=== PATIENT | female | born 1990 | race Two or more races ===

== ENCOUNTER 2020-04-07 20:53 | Observation (INO) | payer OTHER ==
[~2020-04-07] VITALS: Ht 165.1 cm; Wt 109.3 kg
[2020-04-07] MEDS ORDERED: LACTATED RINGER'S 1,000 ML IV ONE (22:45)
[2020-04-07] MEDS ORDERED: TERBUTALINE SULFATE 1 MG/ML 1ML VIAL SC SCH (22:45)
[2020-04-07] MEDS ORDERED: ACETAMINOPHEN 325 MG TAB PO ONE (22:45)
== END 2020-04-08 00:43 | disposition home or self-care (01) ==
LOC: ER 20:54 → LDRP 21:40
PROVIDERS: ADMIT Obstetrics & Gynecology; ATTEND Obstetrics & Gynecology
DX: O62.9 Abnormality of forces of labor, unspecified (principal); O99.512 Diseases of the respiratory system complicating pregnancy, second trimester; R10.30 Lower abdominal pain, unspecified; M54.9 Dorsalgia, unspecified; J45.909 Unspecified asthma, uncomplicated; Z3A.20 20 weeks gestation of pregnancy
CPT/HCPCS: 59025; 76805; 81002; 96360; 96361; 96372; G0378; J3105